=== PATIENT | female | born 1995 | race African-American/Black ===

== ENCOUNTER 2018-02-13 19:28 | Emergency (ER) | payer MEDICARE ==
[~2018-02-13] VITALS: Ht 172.7 cm; Wt 84.0 kg
[2018-02-13 20:23] LABS: CLARITY URINE CLOUDY (CLEAR); COLOR URINE YELLOW (YELLOW); KETONES URINE NEGATIVE (NEGATIVE); LEUKOCYTE ESTERASE URINE NEGATIVE (NEGATIVE); NITRITE URINE NEGATIVE (NEGATIVE); OCCULT BLOOD URINE NEGATIVE (NEGATIVE); PROTEIN URINE 3+ (NEGATIVE); UROBILINOGEN URINE 0.2 E.U./dL (0.2-1.0)
[2018-02-13 23:10] VITALS: BP 135/80
[2018-02-13] MEDS ORDERED: ACETAMINOPHEN 500MG TABLET PO ONE (23:30)
== END 2018-02-14 01:00 | disposition left against medical advice (07) ==
LOC: ER 19:28
DX: N39.0 Urinary tract infection, site not specified (principal); R05 Cough; Z98.890 Other specified postprocedural states
CPT/HCPCS: 71045; 81025; 87804; 99284